=== PATIENT | male | born 1965 | race Caucasian/White ===

== ENCOUNTER 2020-05-09 15:06 | Observation (INO) | payer OTHER ==
[~2020-05-09] VITALS: Ht 165.1 cm; Wt 84.0 kg
[~2020-05-09 15:06] MED LIST: AMOX1TAB64 PO; CEPH-368 PO; HYDR-1067 PO; METO25TA35 PO; OXYC1TAB14 PO; SULF-169 PO
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
--- NOTE | 2020-05-09 15:42 | NUR ---
pt to imaging
--- NOTE | 2020-05-09 15:56 | NUR ---
LOC X 2 ON XRAY TBL/ RETURNED TO ROOM FOR EVAL
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
--- NOTE | 2020-05-09 16:15 | NUR ---
SITTER NOW AT BEDSIDE
--- NOTE | 2020-05-09 16:20 | NUR ---
XRAY AT BEDSIDE
--- NOTE | 2020-05-09 16:21 | NUR ---
ZA OCONNELL-Fall Risk Medications NOT present and NOT receiving anticoagulants. IN ER, REPORTED THAT PT TAKES NO HOME MEDS AND THERE ARE NO MEDS ON EMAR BY THIS POINT. Signed: 05/09/20 at 1622 by Ang DC
[2020-05-09 16:23] LABS: BASOPHILS % (AUTO) 0 % (0-1); EOSINOPHILS % (AUTO) 1 % (1-7); LYMPHOCYTES % (AUTO) 51 % (22-44); MEAN CORPUSCULAR HEMOGLOBIN 30.9 pg (27.5-34.5); MEAN CORPUSCULAR HGB CONC 34.5 g/dL (33.2-36.2); MEAN PLATELET VOLUME 7.9 fL (7.4-10.4); MONOCYTES % (AUTO) 8 % (2-9); NEUTROPHILS % (AUTO) 40 % (42-75); PLATELET COUNT 269 x10^3/uL (130-400); RED BLOOD COUNT 4.88 x10^6/uL (4.38-5.82); RED CELL DISTRIBUTION WIDTH 13.4 % (9.4-14.8)
--- NOTE | 2020-05-09 16:23 | NUR ---
CT CALLED, PT WILL BE TAKEN NEXT ONCE CURRNT PT LEAVES.
[2020-05-09 16:28] LABS: MD NO
[2020-05-09 16:31] LABS: ALANINE AMINOTRANSFERASE 25 U/L (12-78); ALBUMIN 3.8 g/dL (3.4-5.0); ANION GAP 8 mmol/L (5-15); CALCIUM 8.2 mg/dL (8.5-10.1); CHLORIDE 112 mmol/L (98-107); CREATININE 0.85 mg/dL (0.7-1.3)
[2020-05-09 16:33] LABS: ALKALINE PHOSPHATASE 94 U/L (45-117); BILIRUBIN,TOTAL 0.4 mg/dL (0.2-1.0); TOTAL PROTEIN 7.9 g/dL (6.4-8.2)
--- NOTE | 2020-05-09 16:50 | NUR ---
PT TO CT
--- NOTE | 2020-05-09 17:28 | NUR ---
PT BACK FROM CT
--- NOTE | 2020-05-09 18:00 | NUR ---
PT SLEEPING, SITTER AT BEDSIDE
--- NOTE | 2020-05-09 18:30 | NUR ---
PT AWAKE, A&0X4, HOWEVER UNSURE WHY HE IS AT HOSPITAL.
--- NOTE | 2020-05-09 19:00 | NUR ---
PT AWAKE AND RESTING IN BED, NO NEEDS AT THIS TIME. SITTER AT DOORWAY
--- NOTE | 2020-05-09 19:35 | NUR ---
PT REQUESTING FOR SOMETHING TO EAT
--- NOTE | 2020-05-09 20:30 | NUR ---
PT UNABLE TO AMBULATE AT THIS TIME, ERP DR PETERSEN MADE AWARE
--- NOTE | 2020-05-09 22:01 | NUR ---
PT AWAKE, TALKING WITH SITTER.
--- NOTE | 2020-05-09 22:53 | NUR ---
PT AWAKE, NO NEEDS AT THIS TIME. PT UNABLE TO GET PHONE NUMBER TO CALL SISTER OR OTHER FAMILY MEMBERS.
--- NOTE | 2020-05-09 23:25 | NUR ---
PT ATTEMPTED TO WALK WITH WALKER, ABLE TO GET ABOUT 10 STEPS AND THEN STATES HE GOT TIRED AND RIGHT EYE HAD "HAZY VISION". PT SAT IN CHAIR IN HALLWAY AND WHEELCHAIR USED TO GET BACK TO BED. SITTER AT BEDSIDE. ERP DR PETERSEN AWARE.
[2020-05-09] MEDS ORDERED: ACETAMINOPHEN 325 MG TABLET PO ONE (23:30)
[2020-05-09] MEDS ORDERED: ACETAMINOPHEN 325 MG TABLET ONE (23:31)
[2020-05-10] MEDS ORDERED: SODIUM CHLORIDE FLUSH 10ML SYR IVF PRN
[2020-05-10] MEDS ORDERED: BISACODYL 10 MG SUPP PR PRN (00:30)
[2020-05-10] MEDS ORDERED: ONDANSETRON ODT 4 MG PO PRN (00:30)
[2020-05-10] MEDS ORDERED: POLYETHYLENE GLYCOL 17 GM PACKET PO PRN (00:30)
[2020-05-10 01:27] VITALS: BP 147/90
[2020-05-10] MEDS: HEPARIN 5,000 UNITS/ML, 1ML SQ SCH ×3 (01:34→19:38)
[2020-05-10] MEDS: ACETAMINOPHEN 325 MG TABLET PO PRN ×4 (01:34→20:27)
[2020-05-10 02:14] VITALS: BP 147/90
[2020-05-10 06:08] LABS: MICROSCOPIC AUTO
[2020-05-10 06:23] LABS: AMPHETAMINE SCREEN, URINE Negative (Negative); BARBITURATE SCREEN, URINE Negative (Negative); BENZODIAZEPINE SCREEN, URINE Negative (Negative); CANNABINOID SCREEN, URINE Positive (Negative); COCAINE SCREEN, URINE Negative (Negative); METHADONE SCREEN, URINE Negative (Negative); OPIATE SCREEN, URINE Negative (Negative)
[2020-05-10 07:03] VITALS: BP 154/76
[2020-05-10] MEDS ORDERED: KETOROLAC 30 MG/1 ML IVPush PRN (09:00)
[2020-05-10] MEDS: SENNA/DOCUSATE TABLET PO SCH (09:52)
[2020-05-10] MEDS ORDERED: OMNIPAQUE 350 MG/ML, 75ML BOTTLE ONE (12:28)
[2020-05-10 12:32] VITALS: BP 158/91
[2020-05-10 17:39] LABS: MICROSCOPIC NOT IND
[2020-05-10 18:41] VITALS: BP 157/89
[2020-05-11 01:05] VITALS: BP 152/88
[2020-05-11] MEDS: HEPARIN 5,000 UNITS/ML, 1ML SQ SCH ×2 (01:14→10:54)
[2020-05-11] MEDS: ACETAMINOPHEN 325 MG TABLET PO PRN ×3 (01:14→15:00)
[2020-05-11 04:54] LABS: ALBUMIN 3.4 g/dL (3.4-5.0); ANION GAP 8 mmol/L (5-15); CALCIUM 8.5 mg/dL (8.5-10.1); CHLORIDE 109 mmol/L (98-107)
[2020-05-11 04:58] LABS: ALANINE AMINOTRANSFERASE 21 U/L (12-78); ALKALINE PHOSPHATASE 92 U/L (45-117); BILIRUBIN,TOTAL 1.2 mg/dL (0.2-1.0); TOTAL PROTEIN 7.4 g/dL (6.4-8.2)
[2020-05-11 05:32] LABS: MEAN CORPUSCULAR HEMOGLOBIN 30.4 pg (27.5-34.5); MEAN CORPUSCULAR HGB CONC 34.3 g/dL (33.2-36.2); PLATELET COUNT 169 x10^3/uL (130-400); RED BLOOD COUNT 4.57 x10^6/uL (4.38-5.82); RED CELL DISTRIBUTION WIDTH 13.2 % (9.4-14.8)
[2020-05-11 06:14] LABS: MD YES
[2020-05-11 06:15] LABS: EOS#(MANUAL) 0.04 x10^3/uL (0.0-0.4); EOS% (MANUAL) 1 % (1-7); MONOS#(MANUAL) 0.44 x10^3/uL (0.3-2.7); MONOS% (MANUAL) 12 % (2-9)
[2020-05-11 06:16] LABS: <PLATELET ESTIMATE> ADEQUATE; <PLT MORPHOLOGY> NORMAL PLT MORPH; <RBC MORPHOLOGY> NORMAL; LYMPH#(MANUAL) 1.89 x10^3/uL (1-3.4); LYMPHS% (MANUAL) 51 % (22-44); SEG#(MANUAL) 1.33 x10^3/uL (1.8-6.8); SEGS% (MANUAL) 36 % (42-75)
[2020-05-11 07:16] VITALS: BP 157/94
[2020-05-11] MEDS: SENNA/DOCUSATE TABLET PO SCH (08:20)
[2020-05-11 13:25] VITALS: BP 154/91
== END 2020-05-11 16:19 | disposition home or self-care (01) ==
LOC: ED 19:04 → INTOOBSV 23:56 → EDIP 23:56 → 4WST 05-10 01:24 → DCLOUNGE 05-11 16:06
PROVIDERS: ADMIT Family Medicine; ATTEND Family Medicine
DX: F10.129 Alcohol abuse with intoxication, unspecified (principal); R10.9 Unspecified abdominal pain; R42 Dizziness and giddiness; S91.001A Unspecified open wound, right ankle, initial encounter; S20.211A Contusion of right front wall of thorax, initial encounter; R30.0 Dysuria; F19.10 Other psychoactive substance abuse, uncomplicated; K80.20 Calculus of gallbladder without cholecystitis without obstruction; W06.XXXA Fall from bed, initial encounter; Y09 Assault by unspecified means; Y93.89 Activity, other specified; Y92.89 Other specified places as the place of occurrence of the external cause; Z79.899 Other long term (current) drug therapy; Z98.890 Other specified postprocedural states
CPT/HCPCS: 36415; 70450; 71101; 73110; 73564; 73610; 74177; 80053; 80307; 80320; 81001; 81003; 83690; 85025; 96372; 97162; 99285; G0378; J1644; Q9967; 96374; G0480

== ENCOUNTER 2020-10-25 21:03 | Emergency (ER) | payer MEDICAID ==
[~2020-10-25] VITALS: Ht 182.9 cm; Wt 81.5 kg
[~2020-10-25 21:03] MED LIST changes: -HYDR-1067 PO; +HYDR-2214 PO; +OXYC1TAB12 PO; -OXYC1TAB14 PO
[2020-10-25 21:05] VITALS: BP 121/34
--- NOTE | 2020-10-25 21:20 | NUR ---
DURING THE REGISTRATION PROCESS A STAFF MEMBER STATED "I KNOW HIM" AND ASSISTED C BIRTHDAY. THIS STAFF MEMBER STATES HE CONTACTED THE PTS BROTHER IN [place], SISTER & BROTHER THAT LIVE LOCALLY. PER THE LOCAL BROTHER, PT HAS BEEN SEEN AND ELOPED FROM [facility] 2 TIMES, AND IS REQUESTING PT BE ON LOCKED UNIT FOR MENTAL HEALTH ISSUES.
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
--- NOTE | 2020-10-25 22:49 | NUR ---
PT RESTING IN ROOM. VS STABLE. CALL LIGHT IN PLACE. WILL CONTINUE TO MONITOR.
--- NOTE | 2020-10-25 23:28 | NUR ---
PT READY FOR DISCHARGE. PT IS A&O X4. VS STABLE. PT REPORTS HE WANTS A BUS PASS. BUS PASS GIVEN. PT HAS APPROPRIATE CLOTHING. PT REPORTS HE WILL FOLLOW UP WITH [facility].
--- NOTE | 2020-10-25 23:30 | NUR ---
PT IS ABLE TO GET SELF DRESSED AND SAFELY AMBUALTE AROUND ROOM. PT GIVEN JUICE AND CRACKERS. PT READY FOR DC.
== END 2020-10-25 23:41 | disposition home or self-care (01) ==
LOC: ED 21:17
DX: G89.11 Acute pain due to trauma (principal); M79.651 Pain in right thigh; F10.10 Alcohol abuse, uncomplicated; Z72.9 Problem related to lifestyle, unspecified; L97.219 Non-pressure chronic ulcer of right calf with unspecified severity; F17.200 Nicotine dependence, unspecified, uncomplicated; Y90.0 Blood alcohol level of less than 20 mg/100 ml; Y04.8XXA Assault by other bodily force, initial encounter; Y93.89 Activity, other specified; Y92.89 Other specified places as the place of occurrence of the external cause; Y99.8 Other external cause status
CPT/HCPCS: 99283

== ENCOUNTER 2020-10-26 13:01 | Emergency (ER) | payer MEDICAID ==
[~2020-10-26] VITALS: Ht 182.9 cm; Wt 81.5 kg
[2020-10-26 13:45] VITALS: BP 108/76
--- NOTE | 2020-10-26 17:32 | NUR ---
Patient/Caregiver given discharge instructions and they have confirmed that they understand the instructions. Patient ambulatory with steady gait. NAD, all questions answered appropriately, denies additional needs at this time. No personal belongings left in room after discharge.
== END 2020-10-26 17:44 | disposition home or self-care (01) ==
LOC: ED 17:00
DX: S83.91XA Sprain of unspecified site of right knee, initial encounter (principal); S70.11XA Contusion of right thigh, initial encounter; S80.01XA Contusion of right knee, initial encounter; R07.89 Other chest pain; X58.XXXA Exposure to other specified factors, initial encounter; Y93.89 Activity, other specified; Y92.89 Other specified places as the place of occurrence of the external cause; Y99.8 Other external cause status
CPT/HCPCS: 71045; 99284

== ENCOUNTER 2020-10-30 04:56 | Emergency (ER) | payer MEDICAID ==
[~2020-10-30] VITALS: Ht 182.9 cm; Wt 78.0 kg
[2020-10-30] MEDS: KETOROLAC 30 MG/1 ML IM ONE ×2 (06:44→07:55)
[2020-10-30] MEDS ORDERED: HYDROmorphone 1 MG/ML, 1ML INJ IM ONE (07:00)
--- NOTE | 2020-10-30 07:00 | NUR ---
late entry for 0700: report taken from FRANCISCO Villavicencio. pt sleeping on gurney, resps even and unlabored, prabhakar.
[2020-10-30] MEDS ORDERED: KETOROLAC 30 MG/1 ML ONE (07:50)
[2020-10-30 07:55] VITALS: BP 131/82
--- NOTE | 2020-10-30 08:00 | NUR ---
PTS FRIEND HOMAR LINDO TO BE ADDED TO CHART CONTACT FOR RIDE HOME: [phone]
--- NOTE | 2020-10-30 08:23 | NUR ---
right knee immobilizer applied by edt, pt tolerated well. cms intact. pt is a&o, resps even and unlabored. dilaudid held per MD order as pt was previously somnolent. pt given toradol per emar, tolerated well. pt given fitted crutches with education, demonstrates appropriate mobility with crutch assist. pt given written and verbal discharge education regarding rx for percocet as well as ortho follow up. pt verbalzes understanding. pt states friend can no longer collect him, pt given cab voucher and wheelchair escort to [place]. cab called for pt.
== END 2020-10-30 08:23 | disposition home or self-care (01) ==
LOC: ED 05:18
DX: S82.091A Other fracture of right patella, initial encounter for closed fracture (principal); F17.200 Nicotine dependence, unspecified, uncomplicated; X58.XXXA Exposure to other specified factors, initial encounter; Y93.89 Activity, other specified; Y92.89 Other specified places as the place of occurrence of the external cause; Y99.8 Other external cause status
CPT/HCPCS: 29505; 73564; 96372; 99283; J1885